=== PATIENT | female | born 1980 | race African-American/Black ===

== ENCOUNTER 2016-08-28 08:56 | Emergency (ER) | payer OTHER ==
[~2016-08-28] VITALS: Ht 162.6 cm; Wt 87.1 kg
[~2016-08-28 08:56] MED LIST: AUGMENTIN 875 M1 TAB PO; FLONASE120 SPRAY/ NAS; GLUCOMETER; GLUCOPHAGE500 MG PO; IUD; LANTUS SOL100 UNIT/1 SC; LANTUS100 U/ML SC; LISINOPRIL5 M1 PO; METFORMIN HCL1000 M1 PO; METFORMIN HCL500 M3 PO; METFORMIN HCL500 MG PO; NOVOLIN 70100 UNIT/1; NOVOLIN 701000 UNITS; PROAIR HFA8.5 GM INH; ZOFRAN4 M2 PO
--- NOTE | 2016-08-28 09:08 | ED GENERAL ADULT ---
History of Present Illness General Chief Complaint: General Adult Stated Complaint: INCREASED WEAKNESS, ALL OVER BODY PAIN Vital Signs & Intake/Output Vital Signs & Intake/Output Vital Signs Date Time Temp Pulse Resp B/P B/P Pulse O2 O2 Flow FiO2 Mean Ox Delivery Rate 08/28 0858 97.8 90 16 155/90 98 Room Air Allergies Coded Allergies: codeine (ANAPHYLAXIS 08/05/15) Reconcile Medications Albuterol Sulfate (Proair Hfa) 8.5 GM HFA.AER.AD 2-4 INH INH Q6P PRN ASTHMA Insulin Glargine,Hum.rec.anlog (Lantus Solostar) 100 UNIT/ML (3 ML) INSULN.PEN 15 U SC BID DIABETES (Reported) Lisinopril 5 MG TABLET 1 TAB PO DAILY HEART (Reported) Metformin HCl 1,000 MG TABLET 1 TAB PO BID diabetes Novolin 70/30 (Novolin 70-30 100 Unit/Ml Vial) 100 UNIT/ML (70-30) VIAL DM ( Reported) Triage Note: 35 Y/O FEMALE C/O GENERAL WEAKNESS AND ALL OVER BODY PAIN SINCE THE WEEKEND. STATES BILATERAL ARMS HURT, "FEEL HEAVY, AND ACHY". STATES SHE IS EATING/DRINKING NORMALLY. REPORTS INCREASED URINATION. PT STATES SHE IS DIABETIC BUT HAS NOT BEEN CHECKING BLOOD SUGARS DUE TO BROKEN MACHINE. FINGERSTICK IIN TRIAGE 377 - PT STATES SHE TOOK 15 UNITS LANTUS LAST EVENING; HAS NOT EATEN YET TODAY. 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
--- NOTE | 2016-08-28 10:05 | ED AMS/SEIZURE/WEAK/DIZZY ---
History of Present Illness General Chief Complaint: General Adult Stated Complaint: INCREASED WEAKNESS, ALL OVER BODY PAIN Source: patient Exam Limitations: no limitations Vital Signs & Intake/Output Vital Signs & Intake/Output Vital Signs Date Time Temp Pulse Resp B/P B/P Pulse O2 O2 Flow FiO2 Mean Ox Delivery Rate 08/28 1319 98.8 76 18 132/84 98 Room Air 08/28 1008 Room Air Room Air 08/28 0858 97.8 90 16 155/90 98 Room Air Allergies Coded Allergies: codeine (ANAPHYLAXIS 08/05/15) Reconcile Medications Insulin Glargine,Hum.rec.anlog (Lantus Solostar) 100 UNIT/ML (3 ML) INSULN.PEN 15 U SC QPM DIABETES (Reported) Lisinopril 5 MG TABLET 1 TAB PO DAILY HEART (Reported) Metformin HCl 1,000 MG TABLET 1 TAB PO BID diabetes Novolin 70/30 (Novolin 70-30 100 Unit/Ml Vial) 100 UNIT/ML (70-30) VIAL DM ( Reported) Triage Note: 35 Y/O FEMALE C/O GENERAL WEAKNESS AND ALL OVER BODY PAIN SINCE THE WEEKEND. STATES BILATERAL ARMS HURT, "FEEL HEAVY, AND ACHY". STATES SHE IS EATING/DRINKING NORMALLY. REPORTS INCREASED URINATION. PT STATES SHE IS DIABETIC BUT HAS NOT BEEN CHECKING BLOOD SUGARS DUE TO BROKEN MACHINE. FINGERSTICK IIN TRIAGE 377 - PT STATES SHE TOOK 15 UNITS LANTUS LAST EVENING; HAS NOT EATEN YET TODAY. Triage Nurses Notes Reviewed? yes Onset: Abrupt Duration: day(s): (4-5), constant, continues in ED Timing: recent history Injury Environment: home No Modifying Factors: none : No Patient currently breastfeeds: No HPI: 35-year-old female comes into emergency room with complaints of general increased weakness has been going on for the past 4-5 days. Patient reports some intermittent blurry vision. Bilateral foot pain. Patient denies any shortness of breath chest pain fever chills vomiting. Patient is a type I diabetic. Patient took her insulin as normal last night. She has some increased frequency with urination. Denies any dysuria. Denies any abdominal pain. Denies any cough or upper respiratory symptoms. (TAMIA MASON,RAMILA) Past History Travel History Traveled to [place] past 21 day No Medical History Any Pertinent Medical History? 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 No (RAMILA JOHNSON) Review of Systems Review of Systems Constitutional: Reports: see HPI. EENTM: Reports: no symptoms. Respiratory: Reports: no symptoms. Cardiovascular: Reports: no symptoms. GI: Reports: no symptoms. Genitourinary: Reports: no symptoms. Musculoskeletal: Reports: see HPI. Skin: Reports: no symptoms. Neurological/Psychological: Reports: no symptoms. Hematologic/Endocrine: Reports: no symptoms. Immunologic/Allergic: Reports: no symptoms. All Other Systems: Reviewed and Negative (RAMILA JOHNSON) Physical Exam Physical Exam General Appearance: well developed/nourished, no apparent distress, alert, awake Head: atraumatic, normal appearance Eyes: Bilateral: normal appearance, PERRL, EOMI, other (no papilledema on fundoscopic) . Ears, Nose, Throat: normal pharynx, normal ENT inspection, hearing grossly normal Neck: normal inspection, full range of motion Respiratory: normal breath sounds, chest non-tender, no respiratory distress Cardiovascular: regular rate/rhythm Gastrointestinal: soft, non-tender Back: normal inspection, normal range of motion Extremities: normal range of motion Neurologic/Psych: awake, alert, oriented x 3, normal gait, normal mood/affect Skin: intact, normal color Core Measures ACS in differential dx? No CVA/TIA Diagnosis: No Severe Sepsis Present: No Septic Shock Present: No (RAMILA JOHNSON) Progress Differential Diagnosis: arrythmia, alcohol intoxication, anemia, benign positional vertigo, CVA/stroke, dehydration, drug intoxication, encephalitis, electrolyte imbalance, hypoglycemia, hypoxia, intracranial Hem., intracranial mass/tumor, Meniere's disease, migraine SLAUGHTER, multiple sclerosis, pneumonia, postural hypotension, presyncope, post-traumatic vertigo, sepsis, seizure disorder, subarachnoid Hem., UTI/pyelo, vertebrobasilar insuff Plan of Care: Orders Procedure Date/time Status Add-on Test (ER Only) 08/28 1039 Active URINE 08/28 1000 Complete URINALYSIS 08/28 1000 Complete COMPREHENSIVE METABOLIC PANEL 08/28 1000 Complete CREATINE PHOSPHOKINASE 08/28 1000 Complete CBC WITHOUT DIFFERENTIAL 08/28 1000 Complete ACETONE 08/28 1000 Complete Laboratory Tests 08/28/16 1015: Urinalysis LIGHT H, Urine Color YEL, Urine Clarity CLEAR, Urine pH 6.0, Ur Specific [place] 1.010, Urine Protein NEG, Urine Ketones TRACE H, Urine Nitrite NEG, Urine Bilirubin NEG, Urine Urobilinogen 0.2, Ur Leukocyte Esterase NEG, Ur Microscopic SEDIMENT EXAMINED, Urine RBC RARE, Urine Bacteria RARE H, Urine Hemoglobin TRACE-LYSED, Urine Glucose >=1000 H, Urine Test NEGATIVE 08/28/16 1000: Anion Gap 9, Estimated GFR > 60, BUN/Creatinine Ratio 20.0, Glucose 385 H, Calcium 9.1, Total Bilirubin 0.4, AST 12 L, ALT 24, Alkaline Phosphatase 86, Creatine Kinase 101, Total Protein 6.8, Albumin 3.7, Globulin 3.1, Albumin/ Globulin Ratio 1.2, CBC w Diff NO MAN DIFF REQ, RBC 4.25, MCV 87.4, MCH 29.6, RDW 12.5, MPV 9.8, Gran % 45.0, Lymphocytes % 45.5, Monocytes % 6.6, Eosinophils % 2.1, Basophils % 0.8, Absolute Granulocytes 2.6, Absolute Lymphocytes 2.6, Absolute Monocytes 0.4, Absolute Eosinophils 0.1, Absolute Basophils 0, PUBS MCHC 33.9, Acetone Level NEGATIVE 08/28/16 0958: Sodium Cancelled, Potassium Cancelled, Chloride Cancelled, Carbon Dioxide Cancelled, Anion Gap Cancelled, BUN Cancelled, Creatinine Cancelled, BUN/ Creatinine Ratio Cancelled, Glucose Cancelled, Calcium Cancelled, Total Bilirubin Cancelled, AST Cancelled, ALT Cancelled, Alkaline Phosphatase Cancelled, Total Protein Cancelled, Albumin Cancelled, Globulin Cancelled, Albumin/Globulin Ratio Cancelled, CBC w Diff Cancelled, WBC Cancelled, RBC Cancelled, Hgb Cancelled, Hct Cancelled, MCV Cancelled, MCH Cancelled, RDW Cancelled, Plt Count Cancelled, MPV Cancelled, PUBS MCHC Cancelled Initial ED EKG: none (TAMIA MASON,RAMILA) Departure Departure Disposition: HOME OR SELF CARE Condition: Stable Clinical Impression Primary Impression: General weakness Secondary Impressions: Blurry vision, bilateral Referrals: CARLIE MILLIGAN MD (PCP/Family) KENISHA DONATO,AYDE Whalen Additional Instructions: Follow-up with manager communication provided. Rest. Drink plenty of fluids. Follow -up with primary care doctor. Return if any concerns worsening symptoms. Please go over all results of today's visit with your primary care doctor. Contact your primary care doctor to let them know you were here in the emergency room. There may be nonspecific findings which may not be related to your visit today here in the emergency room but may require further evaluation and chronic monitoring by your primary care doctor. If you had a laceration today the chance of foreign body always remains. You should follow-up with your primary care doctor for recheck in 3-5 days for a wound check. If you had an x-ray done there is a chance that a fracture could have been missed on initial read and you should follow-up with your primary care doctor for repeat x-rays if symptoms persist. If your blood pressure was elevated here in the emergency room please have rechecked by her primary care doctor within the next 48 hours by your primary care doctor. If you were prescribed a narcotic here in the emergency room or any type of controlled substances you're not allowed to drive while taking this medication or operate any type of heavy machinery. Narcotics can make you feel lightheaded dizziness nausea and can cause constipation. You may need to forklift picker a stool softener. Thank you for choosing [facility] emergency room. Please return to the emergency room immediately if you have any other concerns worsening of symptoms. Departure Forms: Customer Survey General Discharge Information Comments 08/28/2016 1:34:38 PM Patient clinically looks well. Nontoxic-appearing. In no apparent distress. No acute vision loss. Patient needs follow-up for possible diabetic retinopathy. No concern for intracranial hypertension at this time. No papilledema appreciated. Patient clinically looks well. Neurologically intact. No complaints of chest pain shortness of breath. Because of general weakness is unclear but patient needs close follow-up with her primary care doctor. Case discussed with Dr. George he agrees plan of care. (TAMIA MASON,RAMILA) PA/CUSTOMER TRAINING SPECIALIST Co-Sign Statement Statement: ED Attending supervision documentation- [] I saw and evaluated the patient. I have also reviewed all the pertinent lab results and diagnostic results. I agree with the findings and the plan of care as documented in the PA's/CUSTOMER TRAINING SPECIALIST's documentation. [X] I have reviewed the ED Record and agree with the PA's/CUSTOMER TRAINING SPECIALIST's documentation. [] Additions or exceptions (if any) to the PAs/CUSTOMER TRAINING SPECIALIST's note and plan are summarized below: [] (HENRY GEORGE DO)
[2016-08-28 10:17] LABS: ABSOLUTE BASOPHIL COUNT 0 /CUMM (0.0-0.2); ABSOLUTE EOSINOPHIL COUNT 0.1 /CUMM (0.0-0.7); ABSOLUTE GRANULOCYTE CT 2.6 /CUMM (1.4-6.5); ABSOLUTE LYMPH COUNT 2.6 /CUMM (1.2-3.4); ABSOLUTE MONOCYTE COUNT 0.4 /CUMM (0.10-0.60); BASOPHIL % 0.8 % (0.0-2.0); EOSINOPHIL % 2.1 % (0-5); HEMATOCRIT 37.1 % (37-47); MEAN CORPUSCULAR HGB 29.6 PG (27.0-31.0); MEAN CORPUSCULAR HGB CONC 33.9 G/DL (33.0-37.0); MEAN CORPUSCULAR VOLUME 87.4 FL (81.0-99.0); MEAN PLATELET VOLUME 9.8 FL (7.4-10.4); PLATELET COUNT 269 /CUMM (130-400); RBC DISTRIBUTION WIDTH 12.5 % (11.5-14.5); RED BLOOD CELL CT 4.25 /CUMM (4.20-5.40); WHITE BLOOD CELL COUNT 5.7 /CUMM (4.8-10.8)
[2016-08-28 13:19] VITALS: BP 132/84
== END 2016-08-28 13:19 ==
LOC: ERH 08:56
PROVIDERS: Physician Assistant Medical
DX: R53.1 Weakness (principal); H53.8 Other visual disturbances
CPT/HCPCS: 81001; 81025

== ENCOUNTER 2016-09-21 02:24 | Emergency (ER) | payer OTHER ==
[~2016-09-21] VITALS: Ht 165.1 cm; Wt 72.6 kg
--- NOTE | 2016-09-21 02:46 | ED GI/GU/ABDOMINAL COMPLAINT ---
History of Present Illness General Chief Complaint: Abdominal Pain/Flank Pain Stated Complaint: CONSTIPATION,ABD PAIN Source: patient, family Exam Limitations: no limitations Vital Signs & Intake/Output Vital Signs & Intake/Output Vital Signs Date Time Temp Pulse Resp B/P B/P Pulse O2 O2 Flow FiO2 Mean Ox Delivery Rate 09/21 0241 98.1 132 22 133/75 98 Room Air Allergies Coded Allergies: codeine (ANAPHYLAXIS 08/05/15) Reconcile Medications Insulin Glargine,Hum.rec.anlog (Lantus Solostar) 100 UNIT/ML (3 ML) INSULN.PEN 15 U SC QPM DIABETES (Reported) Lisinopril 5 MG TABLET 1 TAB PO DAILY HEART (Reported) Metformin HCl 1,000 MG TABLET 1 TAB PO BID diabetes Novolin 70/30 (Novolin 70-30 100 Unit/Ml Vial) 100 UNIT/ML (70-30) VIAL DM ( Reported) Peg 3350/Na Sulf,Bicarb,Cl/KCl (Golytely Packet) 227.1-21.5 POWD.PACK 1 PACKET PO X1 PRN CONSTIPATION Polyethylene Glycol 3350 (Miralax) 17 GRAM POWD.PACK 1 PAC PO BID PRN CONSTIPATION dissolve in water Triage Note: PT TO ED C/O CONSTIPATION AND ABD PAIN X 6 DAYS. PT STATES SHE HAS NOT BEEN ABLE TO HAVE A BM SINCE LAST SUNDAY. PT TOOK 2 SUPPOSITORIES WITHOUT RELIEF TODAY. PT STATES SHE IS "EXTREMELY BLOATED AND IT FEELS LIKE IM TRYING TO PUSH A BOLDER THROUGH A PIN HOLE" Triage Nurses Notes Reviewed? yes ? n Is pt currently ? No Onset: Gradual Duration: day(s): Timing: recent history Quality/Severity: cramping Location: left lower quadrant Radiation: no radiation Activities at Onset: none Prior Abdominal Problems: none Modifying Factors: Worsens With: palpation. Associated Symptoms: abdominal pain HPI: 35-year-old woman presents with diffuse abdominal cramping mostly in the left lower quadrant, in the context of not being able to have a bowel movement for the past 3 days. She states that she feels pressure in her rectum. She feels like there is ample stool that she is unable to evacuate. She has no fever nausea or dysuria. She notes no change in her medications or diet. She is otherwise well. Past History Travel History Traveled to [place] past 21 day No Medical History Any Pertinent Medical History? 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 No Review of Systems Review of Systems Constitutional: Reports: no symptoms. EENTM: Reports: no symptoms. Respiratory: Reports: no symptoms. Cardiovascular: Reports: no symptoms. GI: Reports: no symptoms. Genitourinary: Reports: no symptoms. Musculoskeletal: Reports: no symptoms. Skin: Reports: no symptoms. Neurological/Psychological: Reports: no symptoms. Hematologic/Endocrine: Reports: no symptoms. Immunologic/Allergic: Reports: no symptoms. All Other Systems: Reviewed and Negative Physical Exam Physical Exam General Appearance: well developed/nourished, mild distress, moderate distress Head: atraumatic, normal appearance Eyes: Bilateral: normal appearance. Ears, Nose, Throat, Mouth: hearing grossly normal Neck: normal inspection, supple, full range of motion Respiratory: normal breath sounds, chest non-tender, no respiratory distress, quiet respiration, lungs clear Cardiovascular: regular rate/rhythm Gastrointestinal: normal bowel sounds, soft, mild distension Rectal: firm nodular stool, guiac negative. Back: normal inspection, normal range of motion Extremities: normal range of motion Neurologic/Psych: no motor/sensory deficits, awake, alert, oriented x 3 Skin: intact, normal color, warm/dry Core Measures ACS in differential dx? No Severe Sepsis Present: No Septic Shock Present: No Progress Differential Diagnosis: constipation vs other. Plan of Care: Orders Procedure Date/time Status Enema 09/21 318 Active LIPASE 09/21 318 Complete HEPATIC FUNCTION PANEL 09/21 318 Complete HUMAN BETA HCG SCREEN 09/21 318 Complete CBC WITHOUT DIFFERENTIAL 09/21 318 Complete BASIC METABOLIC PANEL 09/21 318 Complete AMYLASE 09/21 318 Complete Laboratory Tests 09/21/16 0355: Anion Gap 12, Estimated GFR > 60, BUN/Creatinine Ratio 25.0, Glucose 430 H, Calcium 9.3, Total Bilirubin 0.4, Direct Bilirubin 0.2, AST 14, ALT 32, Alkaline Phosphatase 92, Total Protein 7.2, Albumin 4.0, Amylase 56, Lipase 164, Total Beta HCG NEGATIVE, CBC w Diff NO MAN DIFF REQ, RBC 4.34, MCV 87.7, MCH 29.1, RDW 12.5, MPV 9.6, Gran % 55.9, Lymphocytes % 36.5, Monocytes % 6.4, Eosinophils % 1.0, Basophils % 0.2, Absolute Granulocytes 4.1, Absolute Lymphocytes 2.7, Absolute Monocytes 0.5, Absolute Eosinophils 0.1, Absolute Basophils 0, PUBS MCHC 33.2 Initial ED EKG: none Departure Departure Disposition: HOME OR SELF CARE Condition: Stable Clinical Impression Primary Impression: Constipation Referrals: CARLIE MILLIGAN MD (PCP/Family) Departure Forms: Customer Survey General Discharge Information Prescriptions: Current Visit Scripts Peg 3350/Na Sulf,Bicarb,Cl/KCl (Golytely Packet) 1 PACKET PO X1 PRN CONSTIPATION #1 KIT Polyethylene Glycol 3350 (Miralax) 1 PAC PO BID PRN CONSTIPATION #10 PAC dissolve in water Comments pt given soap suds enema... experienced a large evacuation... pt feels better... pt safe for discharge. gave rx for golytely, followed by miralax... close follow up advised.
[2016-09-21] MEDS ORDERED: MIRALAX17 G1 PO (03:45)
[2016-09-21] MEDS ORDERED: GOLYTELY PACKE1 EACH PO (03:45)
[2016-09-21 04:02] LABS: ABSOLUTE EOSINOPHIL COUNT 0.1 /CUMM (0.0-0.7); ABSOLUTE LYMPH COUNT 2.7 /CUMM (1.2-3.4); ABSOLUTE MONOCYTE COUNT 0.5 /CUMM (0.10-0.60); HEMATOCRIT 38.1 % (37-47)
[2016-09-21 04:07] LABS: ABSOLUTE BASOPHIL COUNT 0 /CUMM (0.0-0.2); ABSOLUTE GRANULOCYTE CT 4.1 /CUMM (1.4-6.5); BASOPHIL % 0.2 % (0.0-2.0); GRANULOCYTE % 55.9 % (42.2-75.2); MEAN CORPUSCULAR HGB 29.1 PG (27.0-31.0); MEAN CORPUSCULAR HGB CONC 33.2 G/DL (33.0-37.0); MEAN CORPUSCULAR VOLUME 87.7 FL (81.0-99.0); MEAN PLATELET VOLUME 9.6 FL (7.4-10.4); PLATELET COUNT 276 /CUMM (130-400); RBC DISTRIBUTION WIDTH 12.5 % (11.5-14.5); RED BLOOD CELL CT 4.34 /CUMM (4.20-5.40); WHITE BLOOD CELL COUNT 7.4 /CUMM (4.8-10.8)
[2016-09-21 05:21] VITALS: BP 125/78
== END 2016-09-21 05:20 ==
LOC: ERH 02:24
PROVIDERS: Pediatrics
DX: K59.00 Constipation, unspecified (principal)

== ENCOUNTER 2016-10-31 09:23 | Emergency (ER) | payer SELFPAY ==
[~2016-10-31] VITALS: Ht 162.6 cm; Wt 87.1 kg
[~2016-10-31 09:23] MED LIST changes: +GOLYTELY PACKE1 EACH PO; +MIRALAX17 G1 PO
--- NOTE | 2016-10-31 11:28 | ED GI/GU/ABDOMINAL COMPLAINT ---
History of Present Illness General Chief Complaint: General Adult Stated Complaint: +N/V, WEAKNESS Source: patient Exam Limitations: no limitations Vital Signs & Intake/Output Vital Signs & Intake/Output Vital Signs Date Time Temp Pulse Resp B/P B/P Pulse O2 O2 Flow FiO2 Mean Ox Delivery Rate 10/31 1337 75 18 129/81 100 Room Air 10/31 1138 74 16 123/86 100 Room Air 10/31 1116 98 Room Air 10/31 0932 97.2 101 20 112/74 98 Room Air Allergies Coded Allergies: codeine (ANAPHYLAXIS 08/05/15) Reconcile Medications Insulin Glargine,Hum.rec.anlog (Lantus Solostar) 100 UNIT/ML (3 ML) INSULN.PEN 15 U SC QPM DIABETES (Reported) Lisinopril 5 MG TABLET 1 TAB PO DAILY HEART (Reported) Metformin HCl 1,000 MG TABLET 1 TAB PO BID diabetes Novolin 70/30 (Novolin 70-30 100 Unit/Ml Vial) 100 UNIT/ML (70-30) VIAL DM ( Reported) Triage Note: PT TO ED C/O N/V, STARTED LAST NIGHT. DENIES DIARRHEA. C/O FEELING WEAK. HAS NOT VOMITED IN 4 HOURS, STILL HAS NAUSEA. Triage Nurses Notes Reviewed? yes ? N Is pt currently ? No Onset: Gradual Duration: better Timing: single episode today Severity Numbers: 5 Radiation: no radiation Activities at Onset: eating HPI: Patient is a 36-year-old female with past medical history of type 2 diabetes who presents to emergency room stating that since last night patient has had persistent nausea and vomiting which patient believes that she ate lobster that she made of a spot 4 days prior where she ate this lobster for dinner and then patient a few hours later had gradual onset of persistent nausea. Vomiting has stopped about 2-3 hours ago patient has been able to tolerate smooth crackers while in the waiting room. Patient denies any recent antibiotic use denies any significant alcohol use or NSAID use. Denies any fever chills abdominal pain chest pain shortness of breath dysuria hematuria vaginal bleeding or discharge. Last bowel movement was in the last 24 hours no blood no melena noted no diarrhea (LIVIER FUNEZ) Past History Travel History Traveled to [place] past 21 day No Medical History Any Pertinent Medical History? 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 No (LIVIER FUNEZ) Review of Systems Review of Systems Constitutional: Reports: no symptoms. EENTM: Reports: no symptoms. Respiratory: Reports: no symptoms. Cardiovascular: Reports: no symptoms. GI: Reports: see HPI, nausea. Genitourinary: Reports: no symptoms. Musculoskeletal: Reports: no symptoms. Skin: Reports: no symptoms. Neurological/Psychological: Reports: no symptoms. Hematologic/Endocrine: Reports: no symptoms. Immunologic/Allergic: Reports: no symptoms. All Other Systems: Reviewed and Negative (LIVIER FUNEZ) Physical Exam Physical Exam General Appearance: mild distress Gastrointestinal: normal bowel sounds, soft, non-tender, no organomegaly Comments: HEENT: Normal EENT exam, Neck: Supple, no lymphadenopathy, normal range of motion without pain or tenderness Back: Nontender, no CVA tenderness. Cardiovascular: Regular rate and rhythms no murmurs rubs or gallops, normal JVP Respiratory: Chest nontender. No respiratory distress.breath sounds clear to auscultation bilaterally Abdomen: Soft, nontender nondistended, no appreciable organomegaly. Normal bowel sounds. No ascites Extremity: No edema, no calf tenderness to palpation, normal and equal pulses. Neuro: Alert oriented x3, motor sensory normal, Skin: No appreciable rash on exposed skin, skin is warm and dry. Psych: Mood and affect is normal, memory and judgment is normal. Core Measures ACS in differential dx? No Severe Sepsis Present: No Septic Shock Present: No (LIVIER FUNEZ) Progress Differential Diagnosis: appendicitis, biliary colic, bowel obstruction, colon cancer, cholecystitis, diverticulitis, ectopic , endometritis, esophageal varices, gastritis, hepatitis, hernia, hemorrhoids, ischemic bowel, inflamm bowel dis, intrauterine , kidney stone, ovarian cyst, ovarian torsion, pancreatitis, PID/cervicitis, peptic ulcer, PUD/GERD, perforated viscous, SBO, threatened AB, UTI/pyelo Plan of Care: Orders Procedure Date/time Status FingerStick- Glucose 10/31 1408 Active LIPASE 10/31 1125 Complete HUMAN BETA HCG SCREEN 10/31 1125 Complete COMPREHENSIVE METABOLIC PANEL 10/31 1125 Complete CBC WITHOUT DIFFERENTIAL 10/31 112 Complete AMYLASE 10/31 112 Complete Laboratory Tests 10/31/16 1136: Anion Gap 10, Estimated GFR > 60, BUN/Creatinine Ratio 18.3, Glucose 400 H, Calcium 9.4, Total Bilirubin 0.6, AST 12 L, ALT 22, Alkaline Phosphatase 89, Total Protein 7.2, Albumin 4.0, Globulin 3.2, Albumin/Globulin Ratio 1.3, Amylase 39, Lipase 79, Total Beta HCG NEGATIVE, CBC w Diff NO MAN DIFF REQ, RBC 4.65, MCV 86.9, MCH 29.2, RDW 12.2, MPV 10.1, Gran % 47.5, Lymphocytes % 43.7, Monocytes % 7.1, Eosinophils % 1.1, Basophils % 0.6, Absolute Granulocytes 2.7, Absolute Lymphocytes 2.5, Absolute Monocytes 0.4, Absolute Eosinophils 0.1, Absolute Basophils 0, PUBS MCHC 33.6 Patient on initial examination was afebrile and has nontender abdomen. 10/31/2016 12:21:55 PM reevaluation the patient patient was updated on all blood work patient felt improved however glucose was noted before 100. Patient does state that she did not take her Lantus last night nor her metformin last evening or today. Patient will be administered 1000 mg of metformin and given subcutaneous insulin. Repeat glucose is noted to be 300. 10/31/2016 2:09:33 PM patient's repeat glucose was 239. Patient was able to tolerate by mouth upon discharge Patient was strongly advised to follow-up with discharge instructions and plan and she will comply Patient has nontender abdomen upon discharge. (LIVIER FUNEZ) Initial ED EKG: none (LIVIER FUNEZ) Departure Departure Disposition: HOME OR SELF CARE Condition: Stable Clinical Impression Primary Impression: Gastritis Secondary Impressions: Hyperglycemia Referrals: CLIFF DONATO,ERIKA MILLIGAN MD,CARLIE (PCP/Family) Additional Instructions: As discussed begin the prescription of Zofran for nausea and Bentyl for your abdominal complaints. Continue your home medications as directed. If no better in 2 days follow-up with cattle sprayer Dr. CORONADO, if symptoms worsen or if he develop a new concerning symptom return to emergency room immediately Continue to check your blood sugar as directed Begin a 24-hour clear liquid and bland diet and plenty of water for hydration Departure Forms: Customer Survey General Discharge Information (MARIANNE MASON,LIVIER) PA/SUPPORT COORDINATOR Co-Sign Statement Statement: ED Attending supervision documentation- [] I saw and evaluated the patient. I have also reviewed all the pertinent lab results and diagnostic results. I agree with the findings and the plan of care as documented in the PA's/SUPPORT COORDINATOR's documentation. [x] I have reviewed the ED Record and agree with the PA's/SUPPORT COORDINATOR's documentation. [] Additions or exceptions (if any) to the PAs/SUPPORT COORDINATOR's note and plan are summarized below: [] (HENRY GEORGE DO
[2016-10-31 11:53] LABS: ABSOLUTE BASOPHIL COUNT 0 /CUMM (0.0-0.2); ABSOLUTE EOSINOPHIL COUNT 0.1 /CUMM (0.0-0.7); ABSOLUTE GRANULOCYTE CT 2.7 /CUMM (1.4-6.5); ABSOLUTE LYMPH COUNT 2.5 /CUMM (1.2-3.4); ABSOLUTE MONOCYTE COUNT 0.4 /CUMM (0.10-0.60); BASOPHIL % 0.6 % (0.0-2.0); EOSINOPHIL % 1.1 % (0-5); GRANULOCYTE % 47.5 % (42.2-75.2); HEMATOCRIT 40.4 % (37-47); MEAN CORPUSCULAR HGB 29.2 PG (27.0-31.0); MEAN CORPUSCULAR HGB CONC 33.6 G/DL (33.0-37.0); MEAN CORPUSCULAR VOLUME 86.9 FL (81.0-99.0); MEAN PLATELET VOLUME 10.1 FL (7.4-10.4); PLATELET COUNT 269 /CUMM (130-400); RBC DISTRIBUTION WIDTH 12.2 % (11.5-14.5); RED BLOOD CELL CT 4.65 /CUMM (4.20-5.40); WHITE BLOOD CELL COUNT 5.6 /CUMM (4.8-10.8)
[2016-10-31 13:37] VITALS: BP 129/81
== END 2016-10-31 14:22 ==
LOC: ERH 09:23
PROVIDERS: Physician Assistant
DX: K29.70 Gastritis, unspecified, without bleeding (principal); E11.65 Type 2 diabetes mellitus with hyperglycemia
CPT/HCPCS: 96374; 96375; J2405